=== PATIENT | female | born 1975 | race African-American/Black ===

== ENCOUNTER 2021-11-02 21:10 | Emergency (ER) | payer SELFPAY ==
--- NOTE | 2021-11-02 22:49 | ER ---
Nurse's Notes [facility] Name: Lachelle Archer Age: 45 yrs Sex: Female : 1975 Arrival Date: 11/02/2021 Time: 21:20 Bed 9 Private MD: Diagnosis: Coronavirus infection, unspecified Presentation: 11/02 21:45 Chief complaint: Patient states: COVID exposure. Coronavirus screen: Client presents ld1 with at least one sign or symptom that may indicate coronavirus-19. Standard/surgical mask placed on the client. Ebola Screen: No symptoms or risks identified at this time. Initial Sepsis Screen: Does the patient meet any 2 criteria? No. Patient's initial sepsis screen is negative. Does the patient have a suspected source of infection? No. Patient's initial sepsis screen is negative. Risk Assessment: Do you want to hurt yourself or someone else? Patient reports no desire to harm self or others. Onset of symptoms was November 02, 2021. 21:45 Method Of Arrival: Ambulatory ld1 21:45 Acuity: ANGLE 4 ld1 Triage Assessment: 21:45 General: Appears in no apparent distress. comfortable, Behavior is calm, cooperative, ld1 appropriate for age. Pain: Denies pain. EENT: No signs and/or symptoms were reported regarding the EENT system. Neuro: Level of Consciousness is awake, alert, obeys commands, Oriented to person, place, time, situation. Cardiovascular: Capillary refill < 3 seconds Patient's skin is warm and dry. Respiratory: Airway is patent Respiratory effort is even, unlabored. GI: Abdomen is round non-distended. : No signs and/or symptoms were reported regarding the genitourinary system. Derm: No signs and/or symptoms reported regarding the dermatologic system. Derm: No deficits noted. No signs and/or symptoms reported regarding the dermatologic system. 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 - Social history:: Smoking status: Patient denies any tobacco usage or history of. Patient/guardian denies using alcohol. Screenin:05 Abuse screen: Denies threats or abuse. Nutritional screening: No deficits noted. 1 Tuberculosis screening: No symptoms or risk factors identified. Fall Risk None identified. Assessment: 22:05 Reassessment: No changes from previously documented assessment. General: Appears in no [facility] apparent distress. Behavior is calm, cooperative, appropriate for age. Vital Signs: 21:45 BP 145 / 92; Pulse 103; Resp 18; Temp 98.0(O); Pulse Ox 100% on R/A; Weight 111.13 kg; ld1 Height 5 ft. 9 in. (175.26 cm); Pain 0/10; 23:13 BP 136 / 88; Pulse 78; Resp 18; Temp 98.3(O); Pulse Ox 100% on R/A; bh1 21:45 Body Mass Index 36.18 (111.13 kg, 175.26 cm) ld1 ED Course: 21:20 Patient arrived in ED. bp1 21:20 Vanessa Virgen FNP-C is [facility]. kb 21:20 Reese Soto MD is Attending Physician. kb 21:45 Triage completed. ld1 21:45 Arm band placed on right wrist. ld1 21:47 Flu Sent. ld1 21:47 COVID-19 SARS RT PCR (Document "Date of Onset" if Symptomatic) Sent. ld1 22:05 Delaney Hendrix, [place] is Primary Nurse. 1 22:05 No apparent distress. Resting quietly. Awaiting lab results. bh1 22:05 Patient has correct armband on for positive identification. Bed in low position. Call [facility] light in reach. 22:05 No provider procedures requiring assistance completed. Patient did not have IV access [facility] during this emergency room visit. Administered Medications: No medications were administered Medication: 22:05 VIS not applicable for this client. 1 Outcome: 22:48 Discharge ordered by . kb 23:14 Discharged to home ambulatory. bh1 23:14 Condition: good 23:14 Discharge instructions given to patient, Instructed on discharge instructions, follow up and referral plans. 23:14 Patient left the ED. [facility] Signatures: Vanessa Virgen FNP-C FNP-Ckb Mona Vazquez Lauren, RN RN ld1 Delaney Hendrix RN RN bh1
--- NOTE | 2021-11-02 22:49 | EDPHYS ---
Physician Documentation [facility] Name: Lachelle Archer Age: 45 yrs Sex: Female : 1975 Arrival Date: 11/02/2021 Time: 21:20 Bed 9 Private MD: ED Physician Reese Soto HPI: 11/02 22:46 This 45 yrs old Black Female presents to ER via Ambulatory with complaints of Runny kb Nose. 22:46 The patient or guardian reports runny nose. Onset: The symptoms/episode began/occurred kb today. Severity of symptoms: At their worst the symptoms were very mild, in the emergency department the symptoms are unchanged. Modifying factors: The symptoms are alleviated by nothing, the symptoms are aggravated by nothing. Associated signs and symptoms: Pertinent positives: rhinorrhea, Pertinent negatives: chest pain, diarrhea, ear ache, fever, nausea, sore throat, vomiting. The patient has not experienced similar symptoms in the past. The patient has not recently seen a physician. Pt reports runny nose that started today. Was exposed to covid this week. 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 - Social history:: Smoking status: Patient denies any tobacco usage or history of. Patient/guardian denies using alcohol. ROS: 22:46 Constitutional: Negative for fever, chills, and weight loss. kb 22:46 ENT: Positive for rhinorrhea. 22:46 All other systems are negative. Exam: 22:46 Constitutional: This is a well developed, well nourished patient who is awake, alert, kb and in no acute distress. Head/Face: Normocephalic, atraumatic. ENT: Moist Mucous membranes Cardiovascular: Regular rate and rhythm with a normal S1 and S2. No gallops, murmurs, or rubs. No pulse deficits. Respiratory: Respirations even and unlabored. No increased work of breathing. Talking in full sentences Skin: Warm, dry with normal turgor. Normal color. MS/ Extremity: Pulses equal, no cyanosis. Neurovascular intact. Full, normal range of motion. Neuro: Awake and alert, GCS 15, oriented to person, place, time, and situation. Moves all extremities. Normal gait. Psych: Awake, alert, with orientation to person, place and time. Behavior, mood, and affect are within normal limits. Vital Signs: 21:45 BP 145 / 92; Pulse 103; Resp 18; Temp 98.0(O); Pulse Ox 100% on R/A; Weight 111.13 kg; ld1 Height 5 ft. 9 in. (175.26 cm); Pain 0/10; 23:13 BP 136 / 88; Pulse 78; Resp 18; Temp 98.3(O); Pulse Ox 100% on R/A; bh1 21:45 Body Mass Index 36.18 (111.13 kg, 175.26 cm) ld1 MDM: 21:32 Patient medically screened. kb 22:47 Data reviewed: vital signs, nurses notes. Data interpreted: Pulse oximetry: on room air kb is 100 %. Interpretation: normal. Counseling: I had a detailed discussion with the patient and/or guardian regarding: the historical points, exam findings, and any diagnostic results supporting the discharge/admit diagnosis, lab results, the need for outpatient follow up, a family practitioner, to return to the emergency department if symptoms worsen or persist or if there are any questions or concerns that arise at home. 11/02 21:35 Order name: COVID-19 SARS RT PCR (Document "Date of Onset" if Symptomatic); Complete kb Time: 22:46 11/02 21:35 Order name: Flu; Complete Time: 22:31 kb Administered Medications: No medications were administered Disposition Summary: 11/02/21 22:48 Discharge Ordered Location: Home kb Condition: Stable kb Diagnosis - Coronavirus infection, unspecified kb Followup: kb - With: Emergency Department - When: As needed - Reason: Worsening of condition Followup: kb - With: Private Physician - When: 2 - 3 days - Reason: Recheck today's complaints, Continuance of care, Re-evaluation by your physician Discharge Instructions: - Discharge Summary Sheet kb - Viral Respiratory Infection, [id number] kb - COVID-19 kb Forms: - Medication Reconciliation Form kb - Thank You Letter kb - Antibiotic Education kb - Prescription Opioid Use kb Signatures: Dispatcher [employer] Vanessa Michel, RADHA-C RADHA-Ramya Dupont, RN RN ld1
[2021-11-03 01:12] VITALS: O2SAT 100
[2021-11-03 01:17] VITALS: BP 136/88; TEMP 98.3
== END 2021-11-02 23:14 | disposition home or self-care (01) ==
LOC: ER 21:10
DX: U07.1 COVID-19 (principal); I10 Essential (primary) hypertension
CPT/HCPCS: 87804; U0003